=== PATIENT | male | born 1985 | race Caucasian/White ===

== ENCOUNTER 2017-02-27 12:32 | Emergency (ER) | payer BC ==
[2017-02-27] MEDS ORDERED: Sodium Chloride 0.9% 1,000 ML IV ONE (13:25)
--- NOTE | 2017-02-27 13:47 | EDM.PDOC ---
ED HPI GENERAL MEDICAL PROBLEM - General Chief Complaint: Back Pain or Injury Stated Complaint: LOWER BACK AND ABDOMINAL PAIN Time Seen by Provider: 02/27/17 12:40 Source of Information: Reports: Patient, Family (Mother), RN Notes Reviewed History Limitations: Reports: No Limitations - History of Present Illness INITIAL COMMENTS - FREE TEXT/NARRATIVE: The patient states that he developed lower right back pain around 09:00 this morning, while still sleeping. He is unable to describe its character other than "constant". The pain did not radiate. He found that the pain was better if he was lying on his back with a pillow under the lower right back, worse when he was up and walking. He states that he did not have any nausea or vomiting, but that he was unable to urinate and when he tried to drink water, that he vomited the water up. He has still not been able to urinate. No recent fever, constipation, or diarrhea. The patient reports similar symptoms last year. He was diagnosed with a kidney stone which he passed on his own. At this time, the pain has nearly resolved. The patient does not have a PCP. Right Lower Back Pain Score (Numeric/FACES): 7 - Related Data Allergies Allergy/AdvReac Type Severity Reaction Status Date / Time No Known Allergies Allergy Verified 02/27/17 12:46 Home Meds: Home Meds . [No Known Home Meds] 02/27/17 [History] Past Medical History Genitourinary History: Reports: Renal Calculus Endocrine/Metabolic History: Reports: Obesity/BMI 30+ Social & Family History - Tobacco Use Smoking Status *Q: Never Smoker - Caffeine Use Caffeine Use: Reports: None - Alcohol Use Alcohol Use History: Yes Alcohol Use Frequency: Rarely - Recreational Drug Use Recreational Drug Use: No - Living Situation & Occupation Living situation: Reports: Single, with Family Occupation: Employed ([employer]) ED ROS GENERAL - Review of Systems Review Of Systems: See Below Constitutional: Reports: No Symptoms HEENT: Reports: No Symptoms Respiratory: Reports: No Symptoms Cardiovascular: Reports: No Symptoms Endocrine: Reports: No Symptoms GI/Abdominal: Reports: No Symptoms : Reports: No Symptoms Musculoskeletal: Reports: No Symptoms Skin: Reports: No Symptoms Neurological: Reports: No Symptoms Psychiatric: Reports: No Symptoms Hematologic/Lymphatic: Reports: No Symptoms Immunologic: Reports: No Symptoms ED EXAM, GENERAL - Physical Exam Exam: See Below Exam Limited By: No Limitations General Appearance: Alert, WD/WN, No Apparent Distress Eye Exam: Bilateral Eye: Normal Inspection Ears: Normal External Exam, Hearing Grossly Normal Ear Exam: Bilateral Ear: Auricle Normal Nose: Normal Inspection, No Blood Throat/Mouth: Normal Inspection, Normal Lips, Normal Voice, No Airway Compromise Head: Atraumatic, Normocephalic Neck: Normal Inspection, Full Range of Motion Respiratory/Chest: No Respiratory Distress, Lungs Clear, Normal Breath Sounds, No Accessory Muscle Use Cardiovascular: Normal Peripheral Pulses, Regular Rate, Rhythm, No Gallop, No JVD, No Murmur, No Rub GI/Abdominal: Normal Bowel Sounds, Soft, Non-Tender, No Organomegaly, No Distention, No Abnormal Bruit, No Mass, Other (Obese) (Male) Exam: Deferred Back Exam: Normal Inspection, Full Range of Motion, Other (No tenderness to palpation of the lower right back, where the patient reported pain). No: CVA Tenderness (L), CVA Tenderness (R) Extremities: Normal Inspection, Normal Range of Motion, No Pedal Edema, Normal Capillary Refill Neurological: Alert, Oriented, Normal Cognition, No Motor/Sensory Deficits Psychiatric: Normal Affect Skin Exam: Warm, Dry, Intact, Normal Color, No Rash Lymphatic: No Adenopathy Course - Vital Signs Last Recorded V/S: Last Vital Signs Temp 36.1 C 02/27/17 12:40 Pulse 78 02/27/17 12:40 Resp 18 02/27/17 12:40 BP 133/91 H 02/27/17 12:40 Pulse Ox 97 02/27/17 12:40 - Orders/Labs/Meds Labs: Laboratory Tests 02/27/17 Range/Units 14:30 Urine Color Yellow (Yellow) Urine Appearance Clear (Clear) Urine pH 7.0 (5.0-8.0) Ur Specific [place] 1.020 (1.005-1.030) Urine Protein 2+ H (Negative) Urine Glucose (UA) Negative (Negative) Urine Ketones Negative (Negative) Urine Occult Blood 3+ H (Negative) Urine Nitrite Negative (Negative) Urine Bilirubin Negative (Negative) Urine Urobilinogen 0.2 (0.2-1.0) Ur Leukocyte Esterase Negative (Negative) Urine RBC 50-75 H (0-5) /hpf Urine WBC 0-5 (0-5) /hpf Ur Epithelial Cells 0-5 (0-5) /hpf Urine Bacteria Few (FEW) /hpf Urine Mucus Not seen (FEW) /hpf Meds: Medications Discontinued Medications Generic Name Dose Route Start Last Admin Trade Name Emily PRN Reason Stop Dose Admin Sodium Chloride 1,000 mls @ 999 mls/hr 02/27/17 13:25 02/27/17 13:40 Normal Saline IV 02/27/17 14:25 999 mls/hr ONETIME ONE Administration - Re-Assessments/Exams Free Text/Narrative Re-Assessment/Exam: 02/27/17 15:57 The patient's urinalysis shows 50-75 RBCs, consistent with a ureterolith, however, the patient states that he is now completely pain free. He likely passed the stone. No further workup is required. Departure - Departure Time of Disposition: 15:58 Disposition: Home, Self-Care 01 Condition: good Clinical Impression: Ureterolithiasis - Discharge Information Referrals: PCP,None [Primary Care Provider] - Fatmata Sue PA-C [Physician [facility]] - Forms: ED Department Discharge Additional Instructions: You were seen in the emergency room for lower right back pain. Workup in the ER included a urinalysis, which showed a lot of red blood cells in your urine, consistent with a kidney stone. Your pain has now completely resolved. You likely passed the kidney stone. No further workup is needed. Followup with Fatmata Sue in the clinic as needed. If any other problems, please do not hesitate to return to the ER.
[2017-02-27 17:48] VITALS: BP 142/70
== END 2017-02-27 16:09 | disposition home or self-care (01) ==
LOC: JD.ED 12:32
DX: N20.1 Calculus of ureter (principal); E66.9 Obesity, unspecified; Z68.41 Body mass index [BMI] 40.0-44.9, adult
CPT/HCPCS: 81001; 96360; 99284; J7040; 99283